=== PATIENT | male | born 1945 | race Caucasian/White ===

== ENCOUNTER 2018-01-06 16:29 | Inpatient (IN) | payer OTHER ==
[2018-01-06 17:06] LABS: ADD MAN DIFF? NO
[2018-01-06 17:12] LABS: BASOPHIL # 0.1 10^3/ul (0.0-0.1); BASOPHILS % 0.2 % (0.0-2.0); EOSINOPHILS % 0.1 % (0.0-7.0); HEMOGLOBIN 13.9 g/dl (14.0-18.0); LYMPHOCYTES # 1.5 10^3/ul (0.8-2.9); LYMPHOCYTES % 6.8 % (15.0-51.0); MEAN CORPUSCULAR HEMOGLOBIN 30.1 pg (29.0-33.0); MEAN CORPUSCULAR HGB CONC 33.1 g/dl (32.0-37.0); MEAN CORPUSCULAR VOLUME 90.9 fl (82.0-101.0); MEAN PLATELET VOLUME 9.5 fl (7.4-10.4); MONOCYTE # 0.8 10^3/ul (0.3-0.9); MONOCYTES % 3.7 % (0.0-11.0); NEUTROPHIL # 19.4 10^3/ul (1.6-7.5); NEUTROPHILS % 88.6 % (39.0-77.0); PLATELET COUNT 649 10^3/UL (140-415); RED BLOOD COUNT 4.62 10^6/ul (4.70-6.10); RED CELL DISTRIBUTION WIDTH 12.6 % (11.5-14.5)
[2018-01-06 17:12] LABS: WHITE BLOOD COUNT 21.9 10^3/ul (4.8-10.8)
[2018-01-06 17:29] LABS: ALANINE AMINOTRANSFERASE 30 IU/L (13-69); ALBUMIN 4.3 g/dl (3.3-4.9); ALKALINE PHOSPHATASE 106 IU/L (42-121); ANION GAP 20 (8-16); ASPARTATE AMINO TRANSFERASE 19 IU/L (15-46); BILIRUBIN,INDIRECT 0.3 mg/dl (0-1.1); BILIRUBIN,TOTAL 0.3 mg/dl (0.2-1.3); BLOOD UREA NITROGEN 106 mg/dl (7-20); CALCIUM 9.1 mg/dl (8.4-10.2); CARBON DIOXIDE 29 mmol/L (21-31); CHLORIDE 91 mmol/L (97-110); GLUCOSE 118 mg/dl (70-220); SODIUM 135 mmol/L (135-144); TOTAL PROTEIN 8.6 g/dl (6.1-8.1)
[2018-01-06 17:31] LABS: INR 1.01; PROTIME 13.4 Sec (11.9-14.9)
[2018-01-06 17:41] LABS: B-TYPE NATRIURETIC PEPTIDE 722 PG/ML (0-125); TROPONIN-I < 0.012 ng/ml (0.000-0.120)
[2018-01-06] MEDS: SOD CHLORIDE 0.9% 1,000 ML IV ×3 (18:00→22:38)
[2018-01-06 19:32] LABS: ADD UMIC YES; UR ASCORBIC ACID NEGATIVE (NEGATIVE); UR BACTERIA MANY /HPF (NONE SEEN); UR BILIRUBIN (Dip) NEGATIVE (NEGATIVE); UR BLOOD (Dip) 2+ mg/dL (NEGATIVE); UR CLARITY TURBID (CLEAR); UR COLOR YELLOW (YELLOW); UR GLUCOSE (Dip) NEGATIVE (NEGATIVE); UR KETONES (Dip) NEGATIVE (NEGATIVE); UR LEUKOCYTE ESTERASE (Dip) 3+ Leu/ul (NEGATIVE); UR NITRITE (Dip) NEGATIVE (NEGATIVE); UR RBC 74 /HPF (0-5); UR SPECIFIC GRAVITY (Dip) 1.012 (1.003-1.030); UR TOTAL PROTEIN (Dip) 2+ mg/dl (NEGATIVE); UR UROBILINOGEN (Dip) NEGATIVE (NEGATIVE); UR WBC > 182 /HPF (0-5)
[2018-01-06] MEDS: CEFTRIAXONE 1 GM/50 ML (PMX) 50 ML IVPB (19:53)
[2018-01-06 20:16] LABS: LACTIC ACID 1.6 mmol/L (0.5-2.0)
[2018-01-06] MEDS ORDERED: DOCUSATE SODIUM 100 MG CAP PO (20:30)
[2018-01-06] MEDS ORDERED: morphine 2 MG INJ IV (20:30)
[2018-01-06] MEDS ORDERED: NACL 0.9% 3 ML SYG IV (20:30)
[2018-01-06] MEDS: ASPIRIN (EC) 325 MG TAB PO (21:38)
[2018-01-06 21:47] LABS: LACTIC ACID 1.2 mmol/L (0.5-2.0)
[2018-01-06 21:47] LABS: CREATINE KINASE 25 IU/L (23-200)
[2018-01-06 22:00] LABS: CK INDEX 1.7; CK-MB 0.42 ng/ml (0.0-2.4); TROPONIN-I < 0.012 ng/ml (0.000-0.120)
[2018-01-06] MEDS: HEPARIN 5,000 UNIT/0.5 ML VIAL SC (22:00)
[2018-01-07] MEDS: ACETAMINOPHEN 325 MG TAB PO ×2 (02:38→20:41)
[2018-01-07 03:45] LABS: ADD MAN DIFF? NO
[2018-01-07 04:05] LABS: WHITE BLOOD COUNT 17.3 10^3/ul (4.8-10.8)
[2018-01-07 04:05] LABS: BASOPHIL # 0.1 10^3/ul (0.0-0.1); BASOPHILS % 0.3 % (0.0-2.0); EOSINOPHILS % 0.2 % (0.0-7.0); HEMATOCRIT 34.2 % (42.0-52.0); HEMOGLOBIN 11.3 g/dl (14.0-18.0); LYMPHOCYTES # 1.6 10^3/ul (0.8-2.9); LYMPHOCYTES % 9.1 % (15.0-51.0); MEAN CORPUSCULAR HEMOGLOBIN 30.3 pg (29.0-33.0); MEAN CORPUSCULAR VOLUME 91.7 fl (82.0-101.0); MEAN PLATELET VOLUME 9.7 fl (7.4-10.4); MONOCYTES % 5.5 % (0.0-11.0); NEUTROPHIL # 14.6 10^3/ul (1.6-7.5); NEUTROPHILS % 84.3 % (39.0-77.0); PLATELET COUNT 465 10^3/UL (140-415); RED BLOOD COUNT 3.73 10^6/ul (4.70-6.10); RED CELL DISTRIBUTION WIDTH 12.6 % (11.5-14.5)
[2018-01-07 04:06] LABS: CREATINE KINASE 30 IU/L (23-200)
[2018-01-07 04:07] LABS: CHOL/HDL RATIO 4.8 RATIO; HDL CHOLESTEROL 31 mg/dl (31-75); LDL CHOLESTEROL,CALCULATED 86 mg/dl; TRIGLYCERIDES 164 mg/dl (0-149)
[2018-01-07 04:07] LABS: CHOLESTEROL 150 mg/dl (100-200)
[2018-01-07 04:08] LABS: ANION GAP 14 (8-16); BLOOD UREA NITROGEN 87 mg/dl (7-20); CARBON DIOXIDE 25 mmol/L (21-31); CHLORIDE 105 mmol/L (97-110); CREATININE 3.03 mg/dl (0.61-1.24); GLUCOSE 100 mg/dl (70-220); MAGNESIUM 3.1 mg/dl (1.7-2.5); POTASSIUM 5.1 mmol/L (3.5-5.1); SODIUM 139 mmol/L (135-144)
[2018-01-07 04:18] LABS: CK-MB 0.59 ng/ml (0.0-2.4); TROPONIN-I < 0.012 ng/ml (0.000-0.120)
[2018-01-07 05:17] LABS: HEMOGLOBIN A1C 5.9 % (0-5.9)
[2018-01-07] MEDS: HEPARIN 5,000 UNIT/0.5 ML VIAL SC ×3 (06:00→20:42)
[2018-01-07] MEDS: SOD CHLORIDE 0.9% 1,000 ML IV ×3 (06:11→16:22)
[2018-01-07] MEDS: ASPIRIN 81 MG TAB PO (08:57)
[2018-01-07] MEDS: CEFTRIAXONE 1 GM/50 ML (PMX) 50 ML IVPB (16:16)
[2018-01-07] MEDS: TAMSULOSIN (SR) 0.4 MG CAP PO (20:42)
[2018-01-08] MEDS: SOD CHLORIDE 0.9% 1,000 ML IV ×3 (02:24→19:36)
[2018-01-08 05:35] LABS: ADD MAN DIFF? NO
[2018-01-08 05:36] LABS: WHITE BLOOD COUNT 16.1 10^3/ul (4.8-10.8)
[2018-01-08 05:36] LABS: BASOPHIL # 0.1 10^3/ul (0.0-0.1); BASOPHILS % 0.4 % (0.0-2.0); EOSINOPHILS # 0.1 10^3/ul (0.0-0.5); EOSINOPHILS % 0.5 % (0.0-7.0); HEMATOCRIT 32.9 % (42.0-52.0); HEMOGLOBIN 10.5 g/dl (14.0-18.0); LYMPHOCYTES # 1.5 10^3/ul (0.8-2.9); LYMPHOCYTES % 9.2 % (15.0-51.0); MEAN CORPUSCULAR HEMOGLOBIN 29.9 pg (29.0-33.0); MEAN CORPUSCULAR HGB CONC 31.9 g/dl (32.0-37.0); MEAN CORPUSCULAR VOLUME 93.7 fl (82.0-101.0); MEAN PLATELET VOLUME 9.7 fl (7.4-10.4); MONOCYTES % 6.5 % (0.0-11.0); NEUTROPHIL # 13.3 10^3/ul (1.6-7.5); NEUTROPHILS % 82.8 % (39.0-77.0); PLATELET COUNT 413 10^3/UL (140-415); RED BLOOD COUNT 3.51 10^6/ul (4.70-6.10); RED CELL DISTRIBUTION WIDTH 12.9 % (11.5-14.5)
[2018-01-08] MEDS: HEPARIN 5,000 UNIT/0.5 ML VIAL SC ×3 (05:37→20:41)
[2018-01-08 05:59] LABS: ANION GAP 11 (8-16); BLOOD UREA NITROGEN 54 mg/dl (7-20); CALCIUM 8.1 mg/dl (8.4-10.2); CARBON DIOXIDE 25 mmol/L (21-31); CHLORIDE 110 mmol/L (97-110); CREATININE 2.06 mg/dl (0.61-1.24); GLUCOSE 85 mg/dl (70-220); POTASSIUM 4.3 mmol/L (3.5-5.1); SODIUM 142 mmol/L (135-144)
[2018-01-08] MEDS: ASPIRIN 81 MG TAB PO (08:57)
[2018-01-08] MEDS: CEFTRIAXONE 1 GM/50 ML (PMX) 50 ML IVPB (16:20)
[2018-01-08] MEDS: TAMSULOSIN (SR) 0.4 MG CAP PO (20:30)
[2018-01-09] MEDS: SOD CHLORIDE 0.9% 1,000 ML IV (04:16)
[2018-01-09] MEDS: HEPARIN 5,000 UNIT/0.5 ML VIAL SC (06:00)
[2018-01-09] MEDS: ASPIRIN 81 MG TAB PO (08:39)
== END 2018-01-09 12:34 | disposition home or self-care (01) | DRG 871 ==
LOC: E/R 16:29 → 6WM 20:00
DX: A41.9 Sepsis, unspecified organism (principal); E43 Unspecified severe protein-calorie malnutrition; N39.0 Urinary tract infection, site not specified; N17.9 Acute kidney failure, unspecified; Z68.1 Body mass index [BMI] 19.9 or less, adult; R65.20 Severe sepsis without septic shock; I25.10 Atherosclerotic heart disease of native coronary artery without angina pectoris; E86.0 Dehydration; I10 Essential (primary) hypertension; F12.10 Cannabis abuse, uncomplicated; Z86.73 Personal history of transient ischemic attack (TIA), and cerebral infarction without residual deficits; N40.1 Benign prostatic hyperplasia with lower urinary tract symptoms; R33.8 Other retention of urine
CPT/HCPCS: 36415; 71045; 74176; 80048; 80053; 80061; 81001; 82550; 82553; 83036; 83605; 83735; 83880; 84484; 85025; 85610; 87040; 87086; 93005; 93306; 96361; 96374; 99285-25